=== PATIENT | female | born 1990 | race Caucasian/White ===

== ENCOUNTER 2018-10-23 17:02 | Emergency (ER) | payer OTHER ==
[2018-10-23 18:26] VITALS: BP 121/78
--- NOTE | 2018-10-23 18:59 | UC ---
Lower Extremity/Ankle HPI - HPI Summary HPI Summary: Per hospital director: "LEFT FOOT PAIN FOR THREE DAYS. NO SPECIFIC RECENT INJURY. PT STATES SHE HAS BEEN WORKING FOR THE LAST 10 DAYS ON HER FEET WITHOUT A DAY OFF." -here w/ her young son -has had a lateral ankle sprain in the past. has been wearing flip flops a lot this summer. pain is at anterolateral ankle area. toes feel stiff and sometimes like they are asleep - History of Current Complaint Chief Complaint: UCLowerExtremity Stated Complaint: LT FOOT/LEG PAIN Time Seen by Provider: 10/23/18 18:41 Hx Last Menstrual Period: 10/05/18 Pain Intensity: 8 - Allergies/Home Medications Allergies/Adverse Reactions: Allergies Allergy/AdvReac Type Severity Reaction Status Date / Time cefaclor [From Ceclor] Allergy See Comment Verified 10/23/18 18:15 sertraline [From Zoloft] Allergy Agitation Verified 10/23/18 18:15 Home Medications: Home Medications Acetaminophen TAB* [Tylenol TAB*] 650 mg PO Q4H PRN 10/23/18 [History Confirmed 10/23/18] PMH/Surg Hx/FS Hx/Imm Hx Previously Healthy: Yes Respiratory History: Asthma Other History Of: Negative For: HIV, Hepatitis B, Hepatitis C, Anticoagulant Therapy - Surgical History Surgical History: Yes Surgery Procedure, Year, and Place: D&C. appy. TUBAL LIGATION - Family History Known Family History: Positive: Hypertension Negative: Cardiac Disease - Social History Alcohol Use: None Substance Use Type: None Smoking Status (MU): Never Smoked Tobacco Review of Systems All Other Systems Reviewed And Are Negative: Yes Constitutional: Positive: Negative. Negative: Fever, Chills, Fatigue Skin: Positive: Negative. Negative: Rash, Bruising Eyes: Positive: Negative ENT: Positive: Negative Respiratory: Positive: Negative Cardiovascular: Positive: Negative Gastrointestinal: Positive: Negative Genitourinary: Positive: Negative Motor: Positive: Decreased ROM. Negative: Weakness Neurovascular: Positive: Negative. Negative: Decreased Sensation, Decreased Pulses Musculoskeletal: Negative: Calf Tenderness, Myalgia Neurological: Positive: Paresthesia Psychological: Positive: Negative Is Patient Immunocompromised?: No Physical Exam Triage Information Reviewed: Yes Appearance: Well-Appearing, No Pain Distress, Well-Nourished Vital Signs: Initial Vital Signs Temp 97.7 F 10/23/18 18:20 Pulse 68 10/23/18 18:20 Resp 18 10/23/18 18:20 BP 121/78 10/23/18 18:20 Pulse Ox 100 10/23/18 18:20 Vital Signs Reviewed: Yes Eye Exam: Normal Respiratory Exam: Normal Respiratory: Positive: Lungs clear Cardiovascular Exam: Normal Cardiovascular: Positive: RRR Musculoskeletal Exam: Normal - left foot ankle - no swelling or bruising. disinct alanis lines from flip flops. wearing sneakers that are old and worn and not tied up tighly but very loosly. sensation intact to LT. mortise intact. + 2 DP/PT. mildly tender at area of pain which is anteralatreal left ankle Musculoskeletal: Positive: Strength Intact, ROM Intact, No Edema Neurological Exam: Normal Psychological Exam: Normal Skin Exam: Normal Lower Extremity Course/Dx - Course Course Of Treatment: Left ankle xray - reviewd by myself, not RAD. official read will be in AM. pt is aware. should get t/c if there is a discrpeacny there may be an old chip frx in area that is not c/w pain. I do not see any acute fractures. -max wrap -ice 20 on/20 off with towel -nsids short course -ortho f/u - Differential Dx/Diagnosis Differential Diagnosis/HQI/PQRI: Fracture (Closed), Sprain, Strain, Tendonitis Provider Diagnosis: Left ankle pain, Tendonitis Discharge ED - Sign-Out/Discharge Documenting (check all that apply): Patient Departure All imaging exams completed and their final reports reviewed: No - Discharge Plan Condition: Stable Disposition: HOME Patient Education Materials: Tendinitis (ED) Referrals: Gem Nolasco MD [Primary Care Provider] - Luisito Bautista MD [Medical Doctor] - 5 Days Additional Instructions: I do not appreciate any acute injuries or fractures on your xray. The radiologist will be reviewing the xrays in the morning and you will get a telephone call if there is a discrepancy in the interpretation. We have given you an max wrap for ankle support. Ice 20 mins on/20 mins off with a towel barrier. Make sure to wear good supportive new sneakers that are firm soled. Short course of ibuprofen can be used. -Follow up sooner if symptoms increase - Billing Disposition and Condition Condition: STABLE Disposition: Home
--- NOTE | 2018-10-24 08:20 | UC ---
- Progress Note Progress Note: wet read correct Course/Dx - Diagnoses Provider Diagnoses: Left ankle pain, Tendonitis Discharge ED - Sign-Out/Discharge Documenting (check all that apply): Post-Discharge Follow Up All imaging exams completed and their final reports reviewed: Yes - Discharge Plan Condition: Stable Disposition: HOME Patient Education Materials: Tendinitis (ED) Referrals: Luisito Bautista MD [Medical Doctor] - 5 Days Gem Nolasco MD [Primary Care Provider] - Additional Instructions: I do not appreciate any acute injuries or fractures on your xray. The radiologist will be reviewing the xrays in the morning and you will get a telephone call if there is a discrepancy in the interpretation. We have given you an max wrap for ankle support. Ice 20 mins on/20 mins off with a towel barrier. Make sure to wear good supportive new sneakers that are firm soled. Short course of ibuprofen can be used. -Follow up sooner if symptoms increase - Billing Disposition and Condition Condition: STABLE Disposition: Home
== END 2018-10-23 20:05 | disposition home or self-care (01) ==
LOC: UCCORT 17:02
DX: M77.9 Enthesopathy, unspecified (principal)
CPT/HCPCS: 99212; G0463

== ENCOUNTER 2018-11-13 08:51 | Emergency (ER) | payer OTHER ==
[2018-11-13 09:10] VITALS: BP 110/63
--- NOTE | 2018-11-13 09:19 | UC ---
Knee Pain HPI - HPI Summary HPI Summary: Patient presents to urgent care requesting evaluation for her bilateral knees. Patient states for approximately one month to 6 weeks has had discomfort in the lateral aspects of her knees. 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 Patient states she notices is worse when she stands. Patient did take some non-aspirin pain medicine 3 nights ago with short-term relief. Nothing since. No swelling. No trauma. No paresthesias. No weakness. No trauma. Patient states she is not . Medications reviewed this visit. - History of Current Complaint Chief Complaint: UCLowerExtremity Stated Complaint: BILATERAL KNEES Time Seen by Provider: 11/13/18 09:13 Hx Obtained From: Patient Hx Last Menstrual Period: 10/06/18 Pain Intensity: 4 - Allergies/Home Medications Allergies/Adverse Reactions: Allergies Allergy/AdvReac Type Severity Reaction Status Date / Time cefaclor [From Ceclor] Allergy See Comment Verified 11/13/18 09:08 sertraline [From Zoloft] Allergy Agitation Verified 11/13/18 09:08 Home Medications: Home Medications Acetaminophen [Non-Aspirin Extra Strengt] 500 mg PO ONCE 11/13/18 [History Confirmed 11/13/18] PMH/Surg Hx/FS Hx/Imm Hx Previously Healthy: Yes Other History Of: Negative For: HIV, Hepatitis B, Hepatitis C, Anticoagulant Therapy - Surgical History Surgical History: Yes Surgery Procedure, Year, and Place: D&C. appy. TUBAL LIGATION - Family History Known Family History: Positive: None, Hypertension, Non-Contributory Negative: Cardiac Disease - Social History Occupation: Employed Full-time Lives: With Family Alcohol Use: None Substance Use Type: None Smoking Status (MU): Never Smoked Tobacco Review of Systems All Other Systems Reviewed And Are Negative: Yes Constitutional: Positive: Negative Musculoskeletal: Positive: Other: - bilateral knees Physical Exam - Summary Physical Exam Summary: Vital Signs Reviewed: Yes A+Ox3, no distress Eyes: Conjunctiva Clear ENT: Hearing grossly normal neck: supple Respiratory: Positive: No respiratory distress, No accessory muscle use Cardiovascular: skin color reflect adequate perfusion 2+ PT Musculoskeletal Exam: + SLE + flex.ext knee, ankle + TTP lateral margin patellar bilateral. No crepitus neg anterior/posterior sign. Pain lateral margin on f patella with lateral strain testing Neurological: Positive: Alert, ambulatory without difficulty + gross sensation throughout Psychological: Positive: Normal Response To examiner Skin: Positive: no rash, no ecchymosis, no edema, erythema Triage Information Reviewed: Yes Vital Signs: Initial Vital Signs Temp 97.7 F 11/13/18 09:05 Pulse 70 11/13/18 09:05 Resp 16 11/13/18 09:05 BP 110/63 11/13/18 09:05 Pulse Ox 100 11/13/18 09:05 Knee Pain Course/Dx - Course Course Of Treatment: Patient presents to urgent care requesting evaluation of bilateral knees. Patient with progressive pain lateral origin of both patellas for the last 6 weeks. Patient states it's worse when she stands. Patient took analgesia once with mild effect. No trauma no fall no paresthesias. On exam vital signs are stable. Patient with mild discomfort lateral margin of the bilateral patellas. Patient distal CSM is intact. No concern for bony injury. Discussed with patient will defer imaging at this point. Recommend Motrin every 6 hours with analgesia. Recommend ice. Recommend follow up PCP. Patient has not improved will likely need physical therapy and/or referral. Patient states understanding and comfort with plan. Patient in agreement to follow-up. Return precautions discussed - Differential Dx/Diagnosis Provider Diagnosis: Knee pain, bilateral Discharge ED - Sign-Out/Discharge Documenting (check all that apply): Patient Departure All imaging exams completed and their final reports reviewed: No Studies - Discharge Plan Condition: Stable Disposition: HOME Prescriptions: Ibuprofen TAB* [Motrin TAB* 600 MG] 600 mg PO Q6H PRN #30 tab PRN Reason: Pain - Mild Patient Education Materials: Knee Pain (ED) Referrals: Gem Nolasco MD [Primary Care Provider] - Additional Instructions: - wear max wraps for comfort and support - Okay to apply ice (20 minutes at a time) to your knees - Okay to alternate ibuprofen (Advil, Motrin)600mg and Tylenol (acetaminophen) every 3 hours for pain or fever. Take with food. Do NOT take for more than 4-5 days. - Contact your doctor today to schedule a follow-up appointment next week. If you continue to have pain, your doctor may refer your for xrays, to physical therapist or to a knee specialist - Billing Disposition and Condition Condition: STABLE Disposition: Home
[2018-11-13] MEDS ORDERED: Ibuprofen TAB* 600 MG PO ONE (09:32)
== END 2018-11-13 09:44 | disposition home or self-care (01) ==
LOC: UCCORT 08:51
DX: M25.562 Pain in left knee (principal); M25.561 Pain in right knee
CPT/HCPCS: 99212; A9270-GY; G0463

== ENCOUNTER 2019-06-15 12:35 | Emergency (ER) | payer OTHER ==
[2019-06-15] MEDS ORDERED: Naproxen TAB* 250 MG PO ONE (12:55)
[2019-06-15 12:56] VITALS: BP 119/68
--- NOTE | 2019-06-15 13:33 | UC ---
Lower Extremity/Ankle HPI - HPI Summary HPI Summary: 28-year-old female presents with complaints of right little toe injury. States she accidentally kicked her daughter's toy slide last evening. Complains of pain to the base of the right fifth toe that worsens with walking and weightbearing. Notes some bruising and swelling of the toe. Denies any numbness or tingling. - History of Current Complaint Chief Complaint: UCLowerExtremity Stated Complaint: RT FOOT PAIN Time Seen by Provider: 06/15/19 12:41 Hx Obtained From: Patient Hx Last Menstrual Period: 06/05/19 Pain Intensity: 6 - Allergies/Home Medications Allergies/Adverse Reactions: Allergies Allergy/AdvReac Type Severity Reaction Status Date / Time cefaclor [From Ceclor] Allergy See Comment Verified 06/15/19 12:51 sertraline [From Zoloft] Allergy Agitation Verified 06/15/19 12:51 Home Medications: Home Medications NK [No Home Medications Reported] 06/15/19 [History Confirmed 06/15/19] PMH/Surg Hx/FS Hx/Imm Hx Previously Healthy: Yes - Denies significant PMH Other History Of: Negative For: HIV, Hepatitis B, Hepatitis C, Anticoagulant Therapy - Surgical History Surgical History: Yes Surgery Procedure, Year, and Place: D&C. appy. TUBAL LIGATION - Family History Known Family History: Positive: Hypertension Negative: Cardiac Disease - Social History Occupation: Employed Full-time Lives: With Family Alcohol Use: None Substance Use Type: None Smoking Status (MU): Never Smoked Tobacco Review of Systems All Other Systems Reviewed And Are Negative: Yes Constitutional: Positive: Negative Skin: Positive: Bruising Respiratory: Positive: Negative Cardiovascular: Positive: Negative Gastrointestinal: Positive: Negative Genitourinary: Positive: Negative Motor: Negative: Weakness Neurovascular: Negative: Decreased Sensation Musculoskeletal: Positive: Other: - See HPI Neurological/Mental Status: Positive: Negative Is Patient Immunocompromised?: No Physical Exam - Summary Physical Exam Summary: GENERAL APPEARANCE: Alert and cooperative obese adult female who appears to be in no acute distress. CARDIAC: Normal S1 and S2. No S3, S4 or murmurs. Rhythm is regular. There is no peripheral edema, cyanosis or pallor. Extremities are warm and well perfused. Capillary refill is less than 2 seconds. Peripheral pulses intact. LUNGS: Clear to auscultation without rales, rhonchi, wheezing or diminished breath sounds. ABDOMEN: Positive bowel sounds. Soft, nondistended, nontender. No guarding or rebound. No masses or hepatosplenomegally. MUSKULOSKELETAL: Normal muscular development. Limping gait. EXTREMITIES: Tenderness over the base of the right 5th proximal phalanx with mild-moderate ecchymosis and edema. No gross deformity. Circulation and sensation intact. SKIN: Skin normal color, texture and turgor with no lesions or eruptions. Triage Information Reviewed: Yes Vital Signs: Initial Vital Signs Temp 97.6 F 06/15/19 12:51 Pulse 84 06/15/19 12:51 Resp 16 06/15/19 12:51 BP 119/68 06/15/19 12:51 Pulse Ox 97 06/15/19 12:51 Vital Signs Reviewed: Yes Diagnostics - Radiology No standard instances Radiology Interpretation Completed By: Radiologist Summary of Radiographic Findings: Order Information: TOE RIGHT 5TH. Clinical history: Injury. COMPARISON: None. TECHNIQUE: 3 radiographic views of the right fifth toe were obtained. FINDINGS The bone mineralization is within normal limits. There is a mildly impacted fracture at the base of the proximal fifth phalanx. The joint spaces are grossly maintained. IMPRESSION: Mildly impacted fracture the base of the fifth proximal phalanges. Lower Extremity Course/Dx - Course Course Of Treatment: 28-year-old female presents with complaints of right little toe injury. States she accidentally kicked her daughter's toy slide last evening. Complains of pain to the base of the right fifth toe that worsens with walking and weightbearing. Notes some bruising and swelling of the toe. Denies any numbness or tingling. Afebrile. Vital signs stable. Patient had tenderness over the base of the right 5th proximal phalanx with mild-moderate ecchymosis and edema, no gross deformity with circulation and sensation intact. Remainder of exam was unremarkable. Patient was given naproxen 500 mg for pain. X-ray showed a mildly impacted fracture at the base of the proximal fifth phalanx of the right foot. Reviewed results with the patient. Recommending conservative treatment for a toe fracture including [id number] analgesics and RICE. She was placed in a postop shoe by the RN. She is to follow-up with orthopedic surgery in 5-7 days if symptoms are not improving. Anticipatory guidance and warning symptoms were reviewed with the patient. Verbalizes understanding and agrees with plan of care. - Differential Dx/Diagnosis Differential Diagnosis/HQI/PQRI: Contusion, Dislocation, Fracture (Closed), Sprain Provider Diagnosis: Closed nondisplaced fracture of proximal phalanx of toe of right foot Discharge ED - Sign-Out/Discharge Documenting (check all that apply): Patient Departure All imaging exams completed and their final reports reviewed: Yes - Discharge Plan Condition: Stable Disposition: HOME Patient Education Materials: Toe Fracture (ED) Referrals: Gem Nolasco MD [Primary Care Provider] - Luisito Bautista MD [Medical Doctor] - 5 Days (Follow up in 5-7 days especially if symptoms are not improving. Call for appointment.) Additional Instructions: The x-ray performed in the clinic today showed evidence of a mildly impacted fracture at the base of the proximal fifth phalanx of your right foot. Rest the foot as much as possible. You may walk and bear weight as tolerated. Use the post-op shoe provided to you until you are pain free. You may remove to shower and sleep but should wear at all other times. Apply ice to the affected area for 15-20 minutes at least 4 times a day to help with the pain and swelling. Elevate the foot to help reduce swelling. Take acetaminophen (Tylenol) or ibuprofen (Advil, Motrin) according to directions as needed for pain. Follow up with orthopedic surgery in 5-7 days especially if symptoms do not improve. Call for an appointment. Seek immediate medical attention if you have severe pain not managed with pain medication, you are unable to walk or bear any weight, develop numbness or tingling in the foot or toe(s), or have any worsening of symptoms. - Billing Disposition and Condition Condition: STABLE Disposition: Home
== END 2019-06-15 13:43 | disposition home or self-care (01) ==
LOC: UCCORT 12:35
DX: S92.514A Nondisplaced fracture of proximal phalanx of right lesser toe(s), initial encounter for closed fracture (principal); W22.8XXA Striking against or struck by other objects, initial encounter; Y92.9 Unspecified place or not applicable
CPT/HCPCS: 99213; A9270-GY; G0463